=== PATIENT | female | born 2000 ===

== ENCOUNTER → 2020-01-30 08:31 | Outpatient (CLI) | payer OTHER, SELFPAY ==
--- NOTE | ~2020-01-30 | US_ITS ---
EXAMINATION: US transvaginal DATE: 01/30/2020 08:56 INDICATION: Irregular menstrual cycles. Assess endometrial stripe. TECHNIQUE: Multiple endovaginal sonographic images of the pelvis were obtained. COMPARISON: None. FINDINGS: The uterus measures 6.7 x 2.4 x 3.4 cm. The endometrial complex measures 4 mm in thickness. 3 mm ane choic subendometrial cyst and hypoechoic junctional zone at the anterior lower uterine segment. The r ight ovary measures 4.0 x 2.5 x 3.8 cm. The left ovary measures 3.9 x 2.6 x 2.7 cm. [place] flow is i dentified in both ovaries on color Doppler. There are multiple bilateral anechoic ovarian cysts measu ring between 4 mm and 9 mm which raises possibility of polycystic ovarian disease. There is no free f luid in the pelvis. IMPRESSION: 1. Multiple subcentimeter bilateral ovarian cysts raising possibility of polycystic ovarian disease. 2. Normal endometrial complex thickness of 4 mm with 3 mm anechoic subendometrial cyst at the anterio r lower uterine segment. Reviewed, dictated and finalized at location [facility]. WORKER IMPRESSION: 1. Multiple subcentimeter bilateral ovarian cysts raising possibility of polycy stic ovarian disease. 2. Normal endometrial complex thickness of 4 mm with 3 mm anechoic subendometri al cyst at the anterior lower uterine segment.
== END ==
PROVIDERS: Visit Provider Nurse Practitioner
DX: N83.292 Other ovarian cyst, left side (principal); N83.291 Other ovarian cyst, right side
CPT/HCPCS: 76830